=== PATIENT | male | born 1965 | race Caucasian/White ===

== ENCOUNTER → 2018-04-04 09:34 | Outpatient (BNVA) | payer OTHER, SELFPAY | PROVIDERS: PCP Emergency Medicine; Referring Provider Emergency Medicine; Visit Provider Surgery | DX: K60.3 Anal fistula (principal) | CPT/HCPCS: 99202; 99213 ==

== ENCOUNTER 2019-04-12 07:00 | Outpatient (CLI) | payer OTHER, SELFPAY ==
[2019-04-12 12:06] LABS: Anion Gap 7.9 mmol/L (3-11); BUN 22 mg/dL (7-18); CO2 34.1 mmol/L (21.0-32.0); CREATININE 0.96 mg/dL (0.70-1.30); Calcium 8.7 mg/dL (8.5-10.1); Calculated LDL 77 mg/dL; Chloride 103 mmol/L (98-107); Cholesterol 152 mg/dL (<200); Glucose 124 mg/dL (74-106); HDL Cholesterol 34 mg/dL (40-60); Potassium 3.7 mmol/L (3.5-5.1); Sodium 145 mmol/L (136-145); Triglyceride 207 mg/dL (<150)
[2019-04-12 12:55] LABS: COMMENT (LAB VIEW ONLY) 231.84 mg/dL; Microalb ug/mg Crea 145.9 ug/mg Cr
== END 2019-04-12 07:20 ==
PROVIDERS: PCP Emergency Medicine; Visit Provider Emergency Medicine
DX: E11.9 Type 2 diabetes mellitus without complications (principal); I10 Essential (primary) hypertension; Z98.890 Other specified postprocedural states
CPT/HCPCS: 36415; 80048; 80061; 82043; 82570; 83036

== ENCOUNTER 2020-01-04 04:29 | Emergency (ER) | payer OTHER, SELFPAY ==
[2020-01-04 04:32] VITALS: PULSE 74; RESP 24; TEMP 35.8; O2SAT 100
--- NOTE | 2020-01-04 04:35 | W.ED.GENAD ---
Discharge Plan Disposition Patient Disposition: HOME Condition: Stable Discharge Details Clinical Impression: Kidney stones Primary Care Provider: Robert Arellano ED Provider: Darius Frank Home Meds and New Rx's Prescriptions: New ondansetron 4 mg tablet,disintegrating 4 mg PO Q8H PRN (Reason: nausea and vomiting) Qty: 30 RF: 0 tamsulosin 0.4 mg capsule 0.4 mg PO DAILY Qty: 14 RF: 0 oxycodone 5 mg tablet 5 mg PO Q6H PRN (Reason: pain) Qty: 12 RF: 0 Continued NARCOTIC CONTRACT RF: 0 hydrochlorothiazide 25 mg tablet 25 mg PO DAILY Qty: 90 RF: 4 ibuprofen 800 mg tablet 800 mg PO BID PRN (Reason: pain) Qty: 60 RF: 6 albuterol sulfate 90 mcg/actuation HFA aerosol inhaler 2 puff IH QID PRN (Reason: shortness of breath or wheezing) Qty: 18 RF: 8 hydrocodone-acetaminophen 10-325 mg tablet 1 tab PO BID MDD 2 tabs PRN (Reason: pain) Qty: 60 RF: 0 multivitamin Tablet 1 tab PO DAILY RF: 0 ascorbic acid (vitamin C) [Vitamin C] 500 mg Tablet 1,000 mg PO DAILY RF: 0 Discharge Instructions Instructions: Kidney Stones (ED) Additional Instructions: follow up with urology, you should be contacted with an appointment if you develop fevers or persistent vomit return to the emergency department you can take 600mg ibuprofen every 6 hours or 800mg every 8 hours while taking the oxycodone do not take the hydrocodone Medical Decision Making 54 yo male who states he has htn and prior kidney stones in the past states he went to bed feeling well but awoke a few hours ago with severe left sided lower back and flank pain similar to prior kidney stones. He denies fevers, chills, chest pain, vomit. Does smoke, drinks occasional, denies drug use. HE arrives in pain, no abdominal tenderness, normal vascular exam. Suspect given acute onset of symptoms he has recurrent kidney stone, will tx with toradol, dilaudid and zofran, and obtain ct to evaluate for kidney stone blood work shows no acute findings, ct confirms left uvj calculus with mild hydro, measured at 2mm. No fevers, and no dysuria so doubt uti and ua not consistent with uti. His pain improved and he is hd stable for d/c. Will have him f/u with urology and return precautions given. he is on hydrocodone so will have him stop this and use oxycodone for a few days until stone hopefully passes Differential Diagnosis Differential Diagnosis: kidney stone, pancreatitis, uti Medical Records Medical records reviewed: Yes I reviewed the patient's medical records. Imaging Data Radiologic Study: Attestation: I personally reviewed and interpreted this imaging study as follows: Imaging: CT Scan Radiologist's impression: IMPRESSION: 2 mm left UVJ calculus with mild left hydroureteronephrosis. Renal calculi as described greater on the right Lab Data Lab results reviewed: Yes I reviewed the patient's lab results. HPI General Mode of arrival: ambulatory. Date/Time Provider Initiated Documentation: 01/04/20 04:29. Limitations to Documentation: no limitations. Information obtained by: patient. History of Present Illness 54 year old M presents to the emergency department with the chief complaint of left flank pain, described as moderate, Patient started experiencing this hour(s) (3) and it has been constant. No relieving factors improve symptom(s), No exacerbating factors reported . Patient did receive the following treatments prior to arrival, none Related Data Home Medications Medication Instructions Recorded Confirmed Narcotic Contract 01/04/13 04/12/19 hydrochlorothiazide 25 mg tablet 25 mg PO DAILY #90 tab 03/14/19 01/04/20 ibuprofen 800 mg tablet 800 mg PO BID PRN #60 tab-cap 08/14/19 01/04/20 albuterol sulfate 90 mcg/actuation 2 puff IH QID PRN #18 gm 08/16/19 01/04/20 aerosol inhaler hydrocodone 10 mg-acetaminophen 1 tab PO BID PRN #60 tab MDD 2 tabs 12/19/19 01/04/20 325 mg tablet ascorbic acid (vitamin C) [Vitamin 1,000 mg PO DAILY 01/04/20 01/04/20 C] multivitamin 1 tab PO DAILY 01/04/20 01/04/20 ondansetron 4 mg PO Q8H PRN #30 tab 01/04/20 oxycodone 5 mg PO Q6H PRN #12 tab 01/04/20 tamsulosin 0.4 mg PO DAILY #14 cap 01/04/20 Previous Rx's Medication Instructions Recorded hydrochlorothiazide 25 mg tablet 25 mg PO DAILY #90 tab 03/14/19 ibuprofen 800 mg tablet 800 mg PO BID PRN #60 tab-cap 08/14/19 albuterol sulfate 90 mcg/actuation 2 puff IH QID PRN #18 gm 08/16/19 aerosol inhaler hydrocodone 10 mg-acetaminophen 1 tab PO BID PRN #60 tab MDD 2 tabs 12/19/19 325 mg tablet ondansetron 4 mg PO Q8H PRN #30 tab 01/04/20 oxycodone 5 mg PO Q6H PRN #12 tab 01/04/20 tamsulosin 0.4 mg PO DAILY #14 cap 01/04/20 Allergies Allergy/AdvReac Type Severity Reaction Status Date / Time No Known Allergies Allergy Verified 01/04/20 04:39 Review of Systems All systems reviewed & are unremarkable except as noted in HPI and below Constitutional Constitutional: Denies chills and Denies fever(s) Cardiovascular Cardiovascular: Denies chest pain Respiratory Respiratory: Reports cough Gastrointestinal Gastrointestinal: Denies abdominal pain Genitourinary Genitourinary: Denies dysuria Integumentary/Breasts Skin/Breast: Denies rash [facility] Surgical History (Updated 08/19/18 @ 07:48 by Chris Peña) KNEE SURGERY LEFT Family History Mother No problems noted. Father Heart disease Stroke Sister No problems noted. Brother No problems noted. Grandfather Personal history of malignant neoplasm Grandfather No problems noted. Grandmother Heart disease Grandmother Personal history of malignant neoplasm Social History Smoking/Tobacco Use Status: Current every day Tobacco Type: cigarettes Alcohol Intake: current Alcohol Intake frequency: a few times a month Drug use: Never Substance use type: does not use Do you feel safe at home: Yes Do you feel safe in your relationship?: Yes Exam Const General: other (in pain) Orientation: alert HENMS Head: normal to inspection Ears: external ears normal General nose exam: external nose normal Mouth: moist mucous membranes Eyes General: appearance normal, both eyes and all related structures Neck Neck: normal visual inspection Resp Effort & Inspection: normal respiratory effort and able to speak in complete sentences Cardio Rate: regular rate GI Palpation: soft and nontender Back/Spine/Pelvis Back: no CVA tenderness Skin General skin exam: no rashes or lesions noted Neuro General: patient alert and patient oriented x3 Extrem General: normal to inspection Psych Mental Status: mental status grossly normal
[2020-01-04] MEDS: Ondansetron 4 MG/2 ML VIAL IVP (04:49)
[2020-01-04] MEDS: Ketorolac 15 MG/ML VIAL IVP (04:49)
[2020-01-04] MEDS: Normal Saline 1,000 ML 1000 ML IV (04:50)
[2020-01-04 05:00] LABS: Abs Immature Grans 0.04 10^3/uL (0.0-0.06); Absolute Basophil Count 0.04 10^3/uL (0.0-0.2); Absolute Eosinophil Count 0.17 10^3/uL (0.0-0.7); Absolute Lymphocyte Count 2.22 10^3/uL (1.2-3.4); Absolute Monocyte Count 0.65 10^3/uL (0.1-0.8); Basophils % 0.4; Eosinophils % 1.8; HCT 47.2 % (40.0-50.0); HGB 16.1 g/dL (13.5-17.5); Immature Grans % 0.4; Lymphocytes % 23.6; MCH 32.5 pg (27.0-33.0); MCHC 34.1 % (32.0-36.0); MCV 95.2 fL (80-95); MPV 9.1 fL (8.0-11.0); Monocytes % 6.9; Neutrophils % 66.9; Nucleated RBC 0 %; Platelet Count 217 10^3/uL (130-400); RBC 4.96 10^6/uL (4.36-5.78); RDW 12.9 % (11.8-14.1); RDW-SD 45.4 fL; WBC 9.42 10^3/uL (4.4-10.8)
[2020-01-04] MEDS: HYDROmorphone 2 MG/ML VIAL 1 MG IVP ×2 (05:03→05:40)
[2020-01-04 05:14] LABS: Bilirubin, Direct 0.07 mg/dL (0.00-0.20); Bilirubin, Total 0.4 mg/dL (0.2-1.0); Lipase 138 U/L (73-393); Magnesium 1.9 mg/dL (1.8-2.4); PTT Activated 27.6 sec (21.0-31.4); Prothrombin Time 10.1 sec (9.3-11.0)
[2020-01-04 05:15] LABS: ALT 36 U/L (16-63); AST 19 U/L (15-37); Albumin 3.8 g/dL (3.4-5.0); Alkaline Phosphatase 81 U/L (46-116); Anion Gap 11.5 mmol/L (3-11); BUN 22 mg/dL (7-18); Bilirubin, Total 0.3 mg/dL (0.2-1.0); CO2 27.5 mmol/L (21.0-32.0); CREATININE 1.05 mg/dL (0.70-1.30); Chloride 102 mmol/L (98-107); Glucose 162 mg/dL (74-106); Potassium 3.5 mmol/L (3.5-5.1); Sodium 141 mmol/L (136-145); Total Protein 7.7 g/dL (6.4-8.2)
--- NOTE | 2020-01-04 05:25 | DI.CT_ITS ---
EXAM: CT RENAL COLIC WO CLINICAL HISTORY: right flank pain. TECHNIQUE: Imaging Protocol: Axial computed tomography images with coronal and sagittal reformatted images were created and reviewed. COMPARISON: CT RENAL COLIC WO CONTRAST from 08/16/2013 FINDINGS: ABDOMEN: Lung Bases: Normal where visualized. Liver: Normal density. No measurable mass. Gallbladder and biliary tract: No radiodense calculus or biliary ductal dilation. Pancreas: Normal density, no abnormal calcifications or inflammatory process. Spleen: Normal. Kidneys: Normal size, contour and axis.5 mm nonobstructing stone in the midpole of the right kidney. 1-2 mm nonobstructing stone in the lower pole of the left kidney. 2 mm stone at the left ureteral v esicular junction causing mild hydronephrosis. No masses seen. Adrenal glands: Stable mild adrenal nodularity. Lymph nodes: Within normal limits. Abdominal Aorta: Abdominal portion non-dilated. Atherosclerosis. PELVIS: Bladder:Symmetric distention, no gross wall thickening. Bowel: No obstruction or bowel wall thickening. Appendix is unremarkable. Peritoneal cavity: No ascites, collection or mesenteric inflammatory response Reproductive organs: Within normal limits. Bones: Mild degenerative changes. Soft Tissues: Small paraumbilical hernia. IMPRESSION: 1. 2 mm left UVJ stone causing mild left hydroureteronephrosis. 2. Bilateral nephrolithiasis. RADIATION DOSE DELIVERED: 1,533.49mGy.cm Total DLP DATA REPOSITORY: All CT scans at this facility are submitted to the National Radiology Data Registry (NRDR) Dose Index Registry (DIR) with the [employer] ([employer]). RADIATION OPTIMIZATION: All CT scans at this facility use at least one of these dose optimization te chniques: automated exposure control; mA and/or kV adjustment per patient size (includes targeted exa ms where dose is matched to clinical indication); or iterative reconstruction.
[2020-01-04 05:26] VITALS: BP 150/82; PULSE 90; RESP 20; TEMP 36.5; O2SAT 100
[2020-01-04 05:39] LABS: Bilirubin Negative (Negative); Blood Large (Negative); Clarity Clear (Clear); Glucose Negative (Negative); Ketones Negative (Negative); Leukocyte Esterase Negative (Negative); Nitrite Negative (Negative); Specific Gravity >= 1.030 (1.005-1.025); Urobilinogen 0.2 EU/dL (Up TO 0.2)
[2020-01-04 05:42] LABS: Bacteria Rare HPF (Negative); C & S Indicated? C&S Done As Ordered; Casts Negative LPF (Negative); Crystals Negative HPF (Negative); Epithelial Cells Rare HPF (Negative); Mucus Negative (Negative); RBC 20-50 HPF (0-2); WBC Negative HPF (0-5)
--- NOTE | 2020-01-04 05:58 | NUR.NOTE ---
Refferal to Urology faxed to Care management. Supriya ED Nursing Note:
[2020-01-04 06:02] VITALS: BP 150/82; PULSE 90; RESP 20; TEMP 36.5; O2SAT 100
--- NOTE | 2020-01-04 16:04 | DI.VRAD_ITS ---
PROCEDURE INFORMATION: Exam: CT Abdomen And Pelvis Without Contrast Exam date and time: 01/04/2020 4:35 AM Age: 54 years old Clinical indication: Abdominal pain; Prior surgery; Surgery type: Hernia repair; Patient HX: Left flank pain x5 hours per PT TECHNIQUE: Imaging protocol: Computed tomography of the abdomen and pelvis without contrast. Radiation optimization: All CT scans at this facility use at least one of these dose optimization techniques: automated exposure control; mA and/or kV adjustment per patient size (includes targeted exams where dose is matched to clinical indication); or iterative reconstruction. COMPARISON: CT RENAL COLIC WO CONTRAST 08/16/2013 10:30 AM FINDINGS: Liver: Normal. No mass. Gallbladder and bile ducts: Normal. No calcified stones. No ductal dilation. Pancreas: Normal. No ductal dilation. Spleen: Normal. No splenomegaly. Adrenals: Normal. No mass. Kidneys and ureters: 2 mm left UVJ calculus with mild left hydroureteronephrosis. Right renal calculus measuring 6 mm noted. Additional punctate left renal calculus in the lower pole Stomach and bowel: Unremarkable. No obstruction. No mucosal thickening. Appendix: No evidence of appendicitis. Intraperitoneal space: Unremarkable. No free air. No significant fluid collection. Vasculature: Unremarkable. No abdominal aortic aneurysm. Lymph nodes: Unremarkable. No enlarged lymph nodes. Urinary bladder: Unremarkable as visualized. Reproductive: Unremarkable as visualized. Bones/joints: Unremarkable. No acute fracture. Soft tissues: Unremarkable. IMPRESSION: 2 mm left UVJ calculus with mild left hydroureteronephrosis. Renal calculi as described greater on the right Dictated and Authenticated by: Yo Soto MD. Ordering:TIM Mccoy MD
--- NOTE | 2020-01-06 12:26 | W.ED.FU ---
Received urine culture results showing 50-100,000 mixed gram-positive bacteria. I reviewed medical record and patient did not have dysuria or fever noted on presentation. There were few epithelial cells noted in urinalysis. I called and spoke with the patient and discussed urine culture results. He does note that he has some dysuria. No fevers or chills. Pain persists but is better. Plan will be to initiate antibiotic coverage with Keflex 500 4 times daily x1 week. I encouraged the patient to follow-up with his primary care physician and return should have any worsening or new concerning symptoms. Patient verbalized understanding of treatment plan modification and will parts picker this prescription today.
== END 2020-01-04 06:10 | disposition home or self-care (01) ==
PROVIDERS: Emergency Provider Emergency Medicine; PCP Emergency Medicine
DX: N13.6 Pyonephrosis (principal); Z87.442 Personal history of urinary calculi; I10 Essential (primary) hypertension
CPT/HCPCS: 36415; 80053; 83690; 96361; 96374; 96375; 96376; 99284; 74176; 81003; 81015; 82247; 82248; 83735; 85025; 85610; 85730; 87086; J1885; J2405

== ENCOUNTER 2020-12-17 11:20 | Outpatient (CLI) | payer MEDICARE, SELFPAY ==
[2020-12-17 13:15] LABS: Anion Gap 8.2 mmol/L (3-11); BUN 19 mg/dL (7-18); CO2 29.8 mmol/L (21.0-32.0); Calcium 8.9 mg/dL (8.5-10.1); Chloride 101 mmol/L (98-107); Glucose 125 mg/dL (74-106); Potassium 4.2 mmol/L (3.5-5.1); Sodium 139 mmol/L (136-145)
[2020-12-17 13:23] LABS: Hemoglobin A1C 6.7 % (<5.7)
== END 2020-12-17 11:21 | disposition home or self-care (01) ==
LOC: LOS 11:21
PROVIDERS: PCP Emergency Medicine; Visit Provider Emergency Medicine
DX: I10 Essential (primary) hypertension (principal); E11.9 Type 2 diabetes mellitus without complications
CPT/HCPCS: 36415; 80048; 83036

== ENCOUNTER 2022-06-15 02:35 | Outpatient (CLI) | payer BC, SELFPAY ==
[2022-06-15 08:14] LABS: ALT 40 U/L (16-63); AST 19 U/L (15-37); Albumin 3.6 g/dL (3.4-5.0); Alkaline Phosphatase 95 U/L (46-116); BUN 25 mg/dL (7-18); Bilirubin, Total 0.3 mg/dL (0.2-1.0); Calcium 9.1 mg/dL (8.5-10.1); Calculated LDL 69 mg/dL (<100); Chloride 98 mmol/L (98-107); Cholesterol 172 mg/dL (<200); Estimated GFR 87.78 (mL/min/1.73m2); Glucose 242 mg/dL (74-106); HDL Cholesterol 41 mg/dL (40-60); Potassium 3.3 mmol/L (3.5-5.1); Sodium 137 mmol/L (136-145); Total Protein 7.6 g/dL (6.4-8.2); Triglyceride 311 mg/dL (<150)
[2022-06-15 08:17] LABS: Microalb ug/mg Crea 200.4 ug/mg Cr
[2022-06-15 08:24] LABS: Hemoglobin A1C 8.1 % (<5.7)
== END 2022-06-15 02:36 | disposition home or self-care (01) ==
PROVIDERS: PCP Nurse Practitioner Family; Visit Provider Nurse Practitioner Family
DX: E11.9 Type 2 diabetes mellitus without complications (principal); I10 Essential (primary) hypertension
CPT/HCPCS: 36415; 80053; 80061; 82043; 82570; 83036

== ENCOUNTER 2022-08-07 02:17 | Outpatient (CLI) | payer BC, SELFPAY ==
[2022-08-07 12:28] LABS: Anion Gap 10.7 mmol/L (3-11); BUN 18 mg/dL (7-18); CO2 28.3 mmol/L (21.0-32.0); CREATININE 0.8 mg/dL (0.70-1.30); Calcium 9.3 mg/dL (8.5-10.1); Chloride 101 mmol/L (98-107); Estimated GFR 103.22 (mL/min/1.73m2); Glucose 160 mg/dL (74-106); Potassium 3.9 mmol/L (3.5-5.1); Sodium 140 mmol/L (136-145)
== END 2022-08-07 02:18 | disposition home or self-care (01) ==
LOC: LOS 02:17
PROVIDERS: PCP Nurse Practitioner Family; Visit Provider Nurse Practitioner Family
DX: E11.9 Type 2 diabetes mellitus without complications (principal)
CPT/HCPCS: 36415; 80048

== ENCOUNTER 2023-11-09 17:15 | Outpatient (REF) | payer BC, SELFPAY ==
--- OUTSIDE RECORDS SUMMARY | 2023-11-09 17:18 | XMS_ITS | Encounter Summary ---
Author Organization [facility] Address [address] [place] [address] Care Team Providers Care Cocoa Roaster Name Role Phone Unavailable Primary Care Provider Unavailabl e Encounter Details Date Type Department Care Team (Latest Contact Info) Description 04/19/2015 9:04 EST - 04/19/2015 23:59 EST Hospital Encounter [address] [address] Unknown, Provider, Discharge Disposition: Home or Self Care Social History Tobacco Use Types Packs/Day Years Used Date Smoking Tobacco: Never Assessed Sex and Gender Information Value Date Recorded Sex Assigned at Not on file Gender Identity Not on file Sexual Orientation Not on file documented as of this encounter Discharge Disposition Disposition Code Departure Means Destination Home or Self Jail documented in this encounter Plan of Treatment Not on file documented as of this encounter Visit Diagnoses Not on filedocumented in this encounter
--- OUTSIDE RECORDS SUMMARY | 2023-11-09 17:18 | XMS_ITS | Encounter Summary ---
Author Organization [facility] Address [facility] [place] [address] Care Team Providers Care Manager Clinical Research Name Role Phone AdanRobert le Primary Care Provider [phone] Reason for Visit * Auth/Cert Specialty Diagnoses / Procedures Referred By Jorge Luis t Referred To Contact Diagnoses Anal fistula ANAL FISTULA Procedures PRO SURG DIAGNOSTIC EXAM, ANORECTAL PRO PLACEMENT, SETON PRO REMOVAL ANAL FISTULA, COMPLEX/MULTI ANORECTAL EXAM, REQUIRING ANESTHESIA, DIAGNOSTIC (WRVU 1.8) ANAL SETON PLACEMENT (WRVU 3) SURGICAL TREATMENT OF ANAL FISTULA COMPLEX OR MULTIPLE W\WO SETON PLACEMENT (WRVU 6.39) Referral ID Status Reason Start Date Expiration Date Visits Re quested Visits Authorized [id number] 1 1 Encounter Details Date Type Department Care Team (Late st Contact Info) Description 04/14/2018 4:28 PM EST Anesthesia Event [place] [address] Terence Montiel MD [facility] [place] [address] Ara Calvillo MD [facility] [address] Anesthesia Record Procedure Summary Procedure Name Responsible Anesthesiologist Anesthesia Start Time Anesthesia Stop Time ANORECTAL EXAM, REQUIRING ANESTHESIA, DIAGNOSTIC (WRVU 1.8) (Anus) Terence Montiel MD 04/14/18 1628 04/14/18 1737 Events Date Time Event Comment 04/14/2018 1628 Start 1633 AN Verify 1634 An Start Data 1639 An Induction 1640 An Intubation 1644 Anesthesia Ready 1657 Procedure Start 1712 1728 Extubation/LMA Out 1728 an stop data 1737 Recovery or ICU Handoff Elysia ent care was transferred to the destination unit staff after review of the patient's medical history, current anesthetic/surgical status and plan, according to the Provider Handoff Checklist. 1737 Stop Meds Name Total Midazolam 2 mg fentaNYL 100 mcg Propofol 250 mg Rocuronium 30 mg Ondansetron 4 mg Dexamethasone 12 mg Neostigmine 5 mg Glycopyrrolate 0.8 mg Dexmedetomidine 8 mcg Dexmedetomidine INF 23.43 mcg Albuterol Inhaler 6 puff lactated Ringers infusion 1,000 mL 1,000 mL * Agents Name O2 Air N2O Sevoflurane (et) * Blood No blood administrations on file. Lines, Drains, and Airways Type Details Placement Removal (RETIRED) Peripheral IV Line - Single Lumen 04/14/18; 1513; median cubital vein (antecubital fossa), left; [id number] catheter system; 20 gauge; distraction, intradermal injection, tolerated well, appears comfortable; 04/14/18; 1909 04/14/18 1513 by Amina Alcantara RN 04/14/18 190 by Libra Duran, RN ETT Mask Ventilation: No t Attempted (0); ETT Type: Cuffed; ETT Size: 8.5 mm; Indirect: Video; Notes: Asleep, Pre-O2, RSI, Stylette; Attempts: 1; Laryngoscopy Grade: 1; ETT Placement Verified By: Auscultation, Capnometry, Visual; Secured at Teeth: 22 cm; Inserted by: James HALL; Removal Date: 04/14/18; Removal Time: 172704/14/18 1645 by Jennifer Maza CRNA 04/14/18 1728 by Haven Conley CRNA Incision 04/14/18; 1705; perirectal; 11/17/21 (LDA cleanup utility RA#[id number]); 1715 (LDA cleanup utility RA#[id number]) 04/14/18 1705 by Stacie Naylor RN 11/17/21 171 by Ayush Mcintyre documented in this encounter Social History Tobacco Use Types Packs/Day Years Used Date Smoking Tobacco: Every Day Smokeless Tobacco: Never Sex and Gender Information Value Date Recorded Sex Assigned at Not on file Gender Identity Not on file Sexual Orientation Not on file documented as of this encounter OR Notes * Anesthesia Postprocedure Evaluation - Terence Montiel MD - 04/14/2018 6:58 PM EST [facility] Department of Anesthesiology Post-procedure Note Patient: Rubens Florian Procedure Summary Date: 04/14/18 Room / Location: [address] MAIN OR Anesthesia Start: 1628 Anesthesia Stop: 1736 Procedures: ANORECTAL EXAM, REQUIRING ANESTHESIA, DIAGNOSTIC (WRVU 1.8) (N/A Anus) INCISION & DRAINAGE, PERIANAL ABSCESS, SUPERFICIAL (WRVU 1.24) (N/A Anus) Diagnosis: (ANAL FISTULA) Surgeon: Freya Bruno MD Responsible Provider: Terence Montiel MD Anesthesia Type: general ASA Status: 3 All Anesthesia Providers: Anesthesiologist: Ara Calvillo MD; Terence Montiel MD BUSINESS SPECIALIST: Haven Conley CRNA; Jennifer Maza CRNA Vitals Value Taken Time BP 117/35 04/14/2018 6:30 PM Temp 36.2 ??C (97.2 ??F) 04/14/2018 5:35 PM Pulse Resp 16 04/14/2018 6:15 PM SpO2 96 % 04/14/2018 6:33 PM Pain Level 6 04/14/2018 6:15 PM Vitals shown include unvalidated device data. Patient Location: PACU/[facility] Level of Consciousness: Awake and Alert Pain Management: Satisfactory Analgesia PONV: None Cardiovascular Status: At Baseline Respiratory Status: At Baseline Postoperative Fluid Status: Intravascular EUvolemia Possible Anesthetic Complications: NONE apparent at time of evaluation Final Primary Anesthesia Type: General (The anesthetic type performed was the same as planned.) Comments: I have evaluated the patient in the postoperative period. The patient has no major complaints and there are no serious complications evident. * Anesthesia Preprocedure Evaluation - Ara Calvillo MD - 04/14/2018 3:23 PM EST Pre-Anesthesia Evaluation for: Rubens Florian a 52 y.o. male. Procedure(s): ANORECTAL EXAM, REQUIRING ANESTHESIA, DIAGNOSTIC (WRVU 1.8) ANAL SETON PLACEMENT (WRVU 3) SURGICAL TREATMENT OF ANAL FISTULA COMPLEX OR MULTIPLE W\WO SETON PLACEMENT (WRVU 6.39) No Known Allergies Medications: MAR and/or home medications have been reviewed. Physical Exam: Most Recent Vitals: 04/14/18 1450 BP: 159/88 Pulse: Resp: Temp: SpO2: Body mass index is 44.48 kg/m??. Height: 177.8 cm (5' 10) Weight: (!) 140.6 kg (310 lb) Airway Assessment: Mallampati: III TM distance: <3 FB Neck ROM: full Cardiovascular Assessment: Rhythm: regular Rate: normal Pulmonary Assessment: (+) wheezes Dental Assessment: - normal exam Misc Assessment: Patient is wearing No contact(s). IV access: Peripheral line Anesthesia Plan: ASA 3 general, with a(n) intravenous induction Region - Other Informed Consent: Anesthetic plan and risks discussed with patient and spouse. Use of blood products discussed with patient and spouse who consented to blood products. Plan discussed with BUSINESS SPECIALIST. PAT Staff Note Attending Note: Rubens Florian is a 52 y.o. male who presents for the above procedure in the setting of anal drainage. Past medical history was reviewed and is significant for - HTN, nl 130s/70s - Tobacco, 1ppd - Chronic wrist pain, on 10 norco bid - JAG, on CPAP, 16cm H20 - Obesity Anesthestic PMH: Denies issues NPO: Appropriate-- ROS positive for: nil METS: > 4 Cardiac: No CP or SOB with exertion Labs: No results for input(s): ABORH in the last 7068 hours. Anesthestic Plan: Plan GETA, standard ASA monitors, PIV after discussion of benefits, indications, and risks (including but not limited to sore throat, dental injury, prolonged intubation, cardiac or neurologic event). Ara Calvillo MD documented in this encounter Plan of Treatment Not on file documented as of this encounter Visit Diagnoses Not on filedocumented in this encounter Administered Medications Inactive Administered Medications - up to 3 most recent administrations Medication Order MAR Action Action Date Dose Rate Site albuterol 90 mcg/actuation inhaler PRN, Starting on Denise 04/14/18 at 1724, Until Denise 04/14/18 at 1738, Anesthesia Intra-op, Routine Given 04/14/2018 5:24 PM EST 6 puffs dexamethasone (DECADRON) injection PRN, Starting on Denise 04/14/18 at 1659, Until Denise 04/14/18 at 1737, Anesthesia Intra-op, Routine Given 04/14/2018 4:59 PM EST 12 mg dexmedetomidine (PRECEDEX) 4 mcg/mL (standard Adult & Pedi greater than 20kg) infusion (premix) CONTINUOUS PRN, Starting on Denise 04/14/18 at 1712, Until Denise 04/14/18 at 1737, Anesthesia Intra-op New Bag 04/14/2018 5:12 PM EST 0.4 mcg/kg/hr 14.1 mL/hr dexmedetomidine (PRECEDEX) injection PRN, Starting on Denise 04/14/18 at 1658, Until Denise 04/14/18 at 1737, Anesthesia Intra-op, Routine Given 04/14/2018 5:03 PM EST 4 mcg Given 04/14/2018 4:58 PM EST 4 mcg fentaNYL 50 mcg/mL multi-dose injection PRN, Starting on Denise 04/14/18 at 1632, Until Denise 04/14/18 at 1737, Anesthesia Intra-op, Routine Given 04/14/2018 4:37 PM EST 50 mcg Given 04/14/2018 4:32 PM EST 50 mcg glycopyrrolate (ROBINUL) multi-dose injection PRN, Starting on Denise 04/14/18 at 1724, Until Denise 04/14/18 at 1737, Anesthesia Intra-op, Routine Given 04/14/2018 5:24 PM EST 0.8 mg midazolam (PF) (VERSED) multi-dose injection PRN, Starting on Denise 04/14/18 at 1628, Until Denise 04/14/18 at 1737, Anesthesia Intra-op, Routine Given 04/14/2018 4:28 PM EST 2 mg neostigmine (BLOXIVERZ) injection PRN, Starting on Denise 04/14/18 at 1724, Until Denise 04/14/18 at 1737, Anesthesia Intra-op, Routine Given 04/14/2018 5:24 PM EST 5 mg ondansetron (ZOFRAN) injection PRN, Starting on Denise 04/14/18 at 1659, Until Denise 04/14/18 at 1737, Anesthesia Intra-op, Routine Given 04/14/2018 4:59 PM EST 4 mg propofol (DIPRIVAN) 10 mg/mL bolus injection (Anesthesia) PRN, Starting on Denise 04/14/18 at 1639, Until Denise 04/14/18 at 1737, Anesthesia Intra-op Given 04/14/2018 4:39 PM EST 250 mg rocuronium (ZEMURON) multi-dose injection PRN, Starting on Denise 04/14/18 at 1646, Until Denise 04/14/18 at 1737, Anesthesia Intra-op, Routine Given 04/14/2018 4:46 PM EST 30 mg documented in this encounter Care Teams Manager Clinical Research Relationship Specialty Start Date End Date Robert Arellano DO [address] [place] [address] PCP - General Family Medicine 04/05/18 documented as of this encounter
--- OUTSIDE RECORDS SUMMARY | 2023-11-09 17:18 | XMS_ITS | Encounter Summary ---
Author Organization [facility] [place] [address] Care Team Providers Care Trail Construction Worker Name Role Phone Robert Arellano DO Primary Care Provider [phone] Reason for Visit * Reason Comments Establish Care Anal Fistula * Consultation (Routine) - Closed Specialty Diagnoses / Procedures Referred By Jorge Luis cano Referred To Contact General Surgery Diagnoses ANAL FISTULA Deyvi Allen, DO [address] [place] [address] [facility] [address] [place] [address] Referral ID Status Reason Start Date Expiration Date V isits Requested Visits Authorized [id number] Closed Consult, Test & [facility] 04/05/2018 04/05/2019 1 1 Encounter Details Date Type Department Care Team (Late st Contact Info) Description 04/12/2018 2:30 PM EST Office [place] [address] Lizzie Lozoya APRN [facility] [place] [address] Perianal abscess Social History Tobacco Use Types Packs/Day Years Used Date Smoking Tobacco: Every Day Smokeless Tobacco: Never Sex and Gender Information Value Date Recorded Sex Assigned at Not on file Gender Identity Not on file Sexual Orientation Not on file documented as of this encounter Last Filed Vital Signs Vital Sign Reading Time Taken Comments Blood Pressure 140/77 04/12/2018 2:57 PM EST Pulse 86 04/12/2018 2:57 PM EST Temperature 36.9 ??C (98.5 ??F) 04/12/2018 2:57 PM ES T Respiratory Rate 14 04/12/2018 2:57 PM EST Oxygen Saturation 98% 04/12/2018 2:57 PM EST Inhaled Oxygen Concentration - - Weight 140.6 kg (309 lb 14.4 oz) 04/12/2018 2:57 PM EST Height 175.3 cm (5' 9) 04/12/2018 2:57 PM EST Body Mass Index 45.76 04/12/2018 2:57 PM EST documented in this encounter Progress Notes * Lizzie Lozoya, PAINTING WORKER - 04/12/2018 2:30 PM EST Colon and Rectal Surgery Outpatient Consultation Note [place] [phone] FAX: Reason for Visit: Suspicion for fistula. HPI Patient presents for small area to right butt cheek that has been intermittently draining for about4 months. He states that he first noticed a hot, swollen are to right buttock about 4 months ago, it was tender, but not perticularly painful, he has not noticed a burst of drainage, just a continuedsmall amount of yellow/thick to bloody drainage, especially if he squeezes the area it will drain and the lump will become smaller, but never completely goes away. A few weeks ago he states the drainage stopped, but then about a week later it started draining again. He was seen in [facility] and was recommended to proceed to colon and rectal surgeon for suspicion of anal fistula. He states he did have something similar years ago in a different location, which was drained and had some typeof drain left and it healed up, he believes in or 1999. The patient has a bowel movement at least once per day, with a typical vaying in size and soft formed consistency. Regarding continence, the patient denies incontinence to gas, denies incontinence toliquid stool, denies incontinence to solid stool. The patient has had a colonoscopy on 04/19/2015 with the results being 2 sigmoid polyps with pathology showing hyperplastic. In terms of diet he states that for the last year he has been improving his diet and has lost 50 pounds. He will usually have a omlet with cheese and meat for dinner, banana/salad for lunch, protein veggie for dinner. He drinks about a pot of coffee throughout the day. He drinks 2-3 glasses of water and rare alcohol use. He does not take a fiber supplement. He does take Caro (10-325) usually 2 tablets daily for chronic right wrist pain, HTN on lisinopriland uses a CPAP at night for sleep apnea. He is a pack per day smoker for 35 + years. Past Surgical History: Procedure Laterality Date ??? ABSCESS DRAINAGE PERINEUM Drainage of perineal cyst in or 1999 ??? ANKLE SURGERY Had plate screws, which where subsequently removed. ??? KNEE SURGERY Current Outpatient Medications: ??? pregabalin (LYRICA) 100 mg capsule, , Disp: , Rfl: Allergies no known allergies No family history on file. Social History Socioeconomic History ??? Marital status: Spouse name: Not on file ??? Number of children: Not on file ??? Years of education: Not on file ??? Highest education level: Not on file Social Needs ??? Financial resource strain: Not on file ??? Food insecurity - worry: Not on file ??? Food insecurity - inability: Not on file ??? Transportation needs - medical: Not on file ??? Transportation needs - non-medical: Not on file Occupational History ??? Not on file Tobacco Use ??? Smoking status: Not on file Substance and Sexual Activity ??? Alcohol use: Not on file ??? Drug use: Not on file ??? Sexual activity: Not on file Other Topics Concern ??? Not on file Social History Narrative ??? Not on file Patient denies a family history of: colorectal cancer, colorectal polyps, diverticular disease, Crohn disease and ulcerative colitis. Family History Problem Relation Age of Onset ??? No Known Problems Mother ??? No Known Problems Sister ??? No Known Problems Brother ??? Heart Disease Maternal Grandmother ??? Other Maternal Grandfather malignant neoplasm (unknown) ??? Other Paternal Grandmother neoplasm Constitutional: Denies unintentional weight loss, night sweats, fatigue, decreased appetite, or fever. Eyes: no visual changes, headaches, double vision, or pain. ENT: Denies sinus pain, bloody noses, or ear problems. Cardiovascular: Denies chest pain shortness of breath, leg swelling, palpitation, or loss of consciousness. Respiratory: Denies Cough, sputum, exercise intolerance. Gastrointestinal: Denies abdominal pain, swallowing problems, boating, cramping, nausea, vomiting, or constipation, or diarrhea Genitourinary: Denies urinary incontinence, burning, urgency, or frequency. Musculoskeletal: Chronic right wrist pain due to injury. Integumentary: No lesions, wounds, or skin irritation with the exception of small area to right butt cheek. He does intermittently have inflammation to groin folds. Neurologic: No changes in smell, hearing, taste, no numbness tingling, or balance problems. Psychiatric: no depression, anxiety, or body image concerns. Physical Exam: Blood pressure 140/77, pulse 86, temperature 36.9 ??C (98.5 ??F), temperature sourceOral, resp. rate 14, height 175.3 cm (5' 9), weight (!) 140.6 kg (309 lb 14.4 oz), SpO2 98 %. Bodymass index is 45.76 kg/m??. General Appearance: well developed and well nourished Neuro: awake, alert and oriented to person, place and time no acute distress Psych: appropriate mood and affect Eyes: extra ocular muscles intact, pupils equally reactive to light and accomodation ENT: neck supple, no lyphadenopathy noted CV: regular rate and rhythm Resp: non-labored without adventitous sounds on auscultation Lymph: no edema noted Abdomen: soft, non-tender, and not distended, no masses or organomegaly Perineal exam: The patient was examined in the prone position with assistance from nursing ([facility]) and Dr. Florinda Bruno. ??The external anus was inspected by gently spreading the buttocks. Noted to have small open area, about 5 cm from anal verge on right butt cheek. Not able to probe area, but appears to have palpable track towards anal canal. Rectum was examined with a well lubricated digit and revealed normal tone, squeeze, no tenderness, induration, irregularities, or nodules. Fecal color brown with normal consistency. ?? Anoscopy: ??After introducing a well lubricated lighted Large Hirschman anoscope, examination of the anal canal revealed normal appearing mucosa. No internal opening, lumps, bumps, or mucosal changes, no purulent drainage within the canal. COREFO: COREFO Responses 04/12/2018 Incontinence Scale 2.77 Social Impact Scale 8.33 Frequency Scale 12.5 Stool Releated Aspects 33.33 Medication Scale 0 Total COREFO Score 8.65 The COREFO questionnaire is a validated questionnaire with 27 questions to assess colorectal functional outcome. Patients are asked to consider the two week period prior before filling out the questionnaire. Category scores range from zero to 100. A total score is calculated from the categories above, also ranging from zero to 100. A higher score represents an increased level of functional disturbance. Labs: No labs available for review. Imaging: No imagine available for review. I have discussed with Rubens Florian, the nature of the disease process above. ?? We discussed the nature of anal fistula disease and that it typically is caused by an infection andanal abscess that drains through the perianal skin. We briefly discussed other causes of fistula including Crohn's disease, trauma, and malignancy, but I believe this fistula to be cryptoglandular inorigin or it could be a type of skin cyst or follicle abscess. I discussed with Rubens Florian that the treatment of cryptoglandular anal fistula is almost always surgical and that the risk of not treating a fistula is that there will be a recurrence of the abscess as the tract opening closes over. ?? We discussed the various configurations of anal fistula using the Elliott classification. Also, we discussed the goals of surgical treatment of anal fistula which include elimination of the fistula, prevent fistula recurrence, and preservation of continence. ?? We discussed various treatment options for anal fistula including fistulotomy, seton placement, endorectal advancement flap, fistula plug, and the LIFT (ligation of intersphincteric fistula tract) procedure. We also discussed the risks and benefits of each treatment in relation to the outlined goals. ?? Dr. Bruno recommended an exam under anaesthesia to better evaluate the area and determine if thereis indeed a fistula track or a chronic abscess cavity, which could be debrided and have a drain placed if needed. ?? Rubens Florian agrees to proceed with the plan as outlined and all questions were answered to stated satisfaction. Will plan to schedule EUA today and follow up with Dr. Florinda Bruno on day of surgery. Contact information provided should he have any questions or concerns prior to procedure. Lizzie Lozoya Advanced Practice Registered Nurse General Surgery: [facility] Pager: [phone] documented in this encounter Plan of Treatment Not on file documented as of this encounter Visit Diagnoses Diagnosis Perianal abscess Abscess of anal and rectal regions documented in this encounter Care Teams Trail Construction Worker Relationship Specialty Start Date End Date Robert Arellano DO [address] [place] [address] PCP - General Family Medicine 04/05/18 documented as of this encounter
--- OUTSIDE RECORDS SUMMARY | 2023-11-09 17:18 | XMS_ITS | Encounter Summary ---
Author Organization [facility] Address [facility] [place] [address] Care Team Providers Care Oil Separator Name Role Phone AdanRobert le Primary Care Provider [phone] Reason for Visit * Auth/Cert Specialty Diagnoses [...] Expiration Date Visits Re quested Visits Authorized [id number] 1 1 Encounter Details Date Type Department Care Team (Late st Contact Info) Description 04/14/2018 2:54 PM EST - 04/14/2018 4:17 PM EST [place] [address] Lidia Bruno MD [facility] [place] [address] ANORECTAL EXAM, REQUIRING ANESTHESIA, DIAGNOSTIC (WRVU 1.8) Social History Tobacco Use Types Packs/Day Years Used Date Smoking Tobacco: Every Day Smokeless Tobacco: Never Sex and Gender Information Value Date Recorded Sex Assigned at Not on file Gender Identity Not on file Sexual Orientation Not on file documented as of this encounter Last Filed Vital Signs Vital Sign Reading Time Taken Comments Blood Pressure 159/88 04/14/2018 2:50 PM EST Pulse 73 04/14/2018 2:49 PM EST Temperature 36.6 ??C (97.9 ??F) 04/14/2018 2:49 PM ES T Respiratory Rate 12 04/14/2018 2:49 PM EST Oxygen Saturation 98% 04/14/2018 2:49 PM EST Inhaled Oxygen Concentration - - Weight 140.6 kg (310 lb) 04/14/2018 2:49 PM EST Height 177.8 cm (5' 10) 04/14/2018 2:49 PM EST Body Mass Index 44.48 04/14/2018 2:49 PM EST documented in this encounter Discharge Instructions * Discharge Instructions* Anai Hopper RN - 04/14/2018 6:09 PM EST Next dose of acetaminophen (tylenol) can be taken at 12AM-2AM, 1000mg's given at 6PM POST ANESTHESIA INSTRUCTIONS Go home, rest, use caution on stairs. Change positions slowly. Do not smoke if you are alone. Diet light to regular as tolerated today. If nausea occurs start with clear liquids and progress slowly. No driving, operating machinery, alcoholic beverages and no important decisions for 24 hours. Monitor IV site for signs and symptoms of infection: increasing redness, swelling, foul drainage, if occurs contact M.D. Patients who have had endotrachial tubes (this tube, used by anesthesia department, is passed down your throat after you are asleep, to ensure safe air passage during your operation). A sore throat is normal due to the tube. Cold liquids or soothing lozenges will help ease the discomfort. The generalized muscle aches are due to the medication given to you just before the tube is inserted. As the medication wears off, you may develop muscle soreness, which usually goes away in 12-24 hours. * Patient Instructions* Scott Rosenberg - 04/14/2018 5:42 PM EST Images from the original note were not included. DIVISION OF COLON & RECTAL SURGERY Anorectal Surgery Patient Post-operative Discharge Instructions 1. Wound Care ?? Leave the dressing intact today and remove it tomorrow morning. If you need to move your bowels,the dressing may be removed sooner. ?? Expect some drainage - this may be residual pus, or may be a small amount of blood or mucus - this is normal / expected. ?? Please use fluffy 4x4 gauze to absorb any drainage and keep your bottom dry. ?? Please use a sitz bath or shower 3 - 4X per day (starting tomorrow morning). ?? Sitz bath instructions: Soak your buttocks in plain warm tapwater for 15 minutes 4X/day. This iscomforting and also increase blood flow to the area to aid in healing. ?? if you have a lot of swelling, try sitting on an ice-pack (frozen pea's work well). ?? You may sit on a pillow but do not sit on donut cushions as it spreads the buttocks. 2. Pain medications ?? Please take [id number] pain medications for post-operative discomfort. ?? Acetaminophen (Tylenol) 1000 mg by mouth every 6 hours. ?? Ibuprofen (Motrin/Advil) 600 mg by mouth every 6 hours with food & plenty of liquids. ?? You may alternate these medications every 3 hours; ex. Tylenol at 12pm, Ibuprofen at 3pm, Tylenol at 6pm, Ibuprofen at 9 pm. ?? In addition please use prescribed narcotic pain medication as instructed for severe pain. 3. Avoid getting constipated ?? Drink lots of water and fluids (over 2 liters per day). ?? Each morning please take a daily fiber supplement (such as Citrucel or BeneFiber), one heaping tablespoon in 8 oz. of water. (MiraLax may be recommended instead of fiber) ?? While taking narcotic pain medications please also take a stool softener (Colace 100 mg two to three times per day). ?? If you do not have a bowel movement in 48 hours then take 60 cc of Milk of Magnesia every 12 hours until you have a bowel movement. If you do not have a bowel movement after 2 doses of Milk of Magnesia please call (see below). 4. When to call ?? Fever > 101.5 F, worsening pain, active bleeding, passing blood clots ?? difficulty/inability to pass urine (urinary retention) or stool (constipation) ?? any other worrisome condition or question ?? during regular work hours call the Surgery Clinic at ?? after hours / nights / weekends / holidays: call and ask for the General Surgery Resident doctor On-Call. 4. Follow-up. You will have a post-operative follow-up appointment with your Surgical Team scheduled, usually in 2 - 6 weeks with Ms. Lozoya, Colorectal MAX Rider, anorectal surgery sub-specialist, with your surgeon supervising. If you have any questions, please call . Future Appointments Date Time Provider Department Center 05/10/2018 11:00 AM Lizzie Lozoya APRN [facility] Divison of Colon and Rectal Surgery, [facility] [address] ??? [place] [address] ??? documented in this encounter Medications at Time of Discharge Medication Sig Dispensed Refills Start Date End Date acetaminophen (TYLENOL) 500 mg Tablet Take 2 tablets by mouth every 6 hours. 30 tablet 1 04/14/2018 hydroCHLOROthiazide (HYDRODIURIL) 25 mg Tablet take 1 tablet by mouth once daily 0 03/16/2018 IBU 800 mg Tablet 0 02/24/2018 HYDROcodone-acetaminophe n (NORCO) 10-325 mg Tablet take 1 tablet by mouth twice a day if needed for pain maximum daily dose of 2 tablets 0 04/06/2018 multivitamin (THERAGRAN) Tablet Take 1 tablet by mouth daily. pregabalin (LYRICA) 100 mg capsule 06/29/2007 documented as of this encounter Progress Notes * Libra Duran RN - 04/14/2018 7:09 PM EST Patient alert and oriented, vital signs stable. Reviewed discharge instructions; patient and _wife verbalized understanding. Copy of instruction sheet with contact numbers for questions/concerns. Pain assessment documented. Patient escorted out of department via wheelchair with __wife . documented in this encounter H&P Notes * Scott Rosenberg - 04/14/2018 2:48 PM EST Colorectal Surgery Preop H&P NAME: Rubens Florian DATE: 04/14/18 SURGEON: LIDIA BRUNO PROCEDURE: Anorectal exam under anesthesia, possible abscess incision and drainage, possible cyst excision, possible Seton placement, possible fistulotomy BRIEF HISTORY: Rubens Florian is a 52 y.o. male with intermittent perianal drainage and swelling concerning for fistula in ano vs perianal abscess. He presents today for anorectal exam under anesthesia with possible fistulotomy, possible Seton placement, possible cyst excision, possible incision and drainage. Please see Lizzie Lozoya's clinic note from 04/12 for full details. The patient reports no interval change. There has been no interval medical illness or hospitalizations. Questions have been addressed. Last colonoscopy in 2015, screening. Two hyperplastic polyps found in the sigmoid colon. Otherwise normal. Smoking HX: Social History Tobacco Use Smoking Status Current Every Day Smoker Smokeless Tobacco Never Used PMH: Patient Active Problem List Diagnosis Date Noted ??? Hypertension 04/12/2018 ??? 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 Sleep apnea 04/12/2018 PSH: Past Surgical History: Procedure Laterality Date ??? ABSCESS DRAINAGE PERINEUM Drainage of perineal cyst in or 1999 ??? ANKLE SURGERY Had plate screws, which where subsequently removed. ??? KNEE SURGERY MEDS: No current facility-administered medications on file prior to encounter. Current Outpatient Medications on File Prior to Encounter Medication Sig Dispense Refill ??? hydroCHLOROthiazide (HYDRODIURIL) 25 mg Tablet take 1 tablet by mouth once daily 0 ??? multivitamin (THERAGRAN) Tablet Take 1 tablet by mouth daily. ??? IBU 800 mg Tablet 0 ??? HYDROcodone-acetaminophen (NORCO) 10-325 mg Tablet take 1 tablet by mouth twice a day if neededfor pain maximum daily dose of 2 tablets 0 ??? pregabalin (LYRICA) 100 mg capsule (Patient not taking: No sig reported) ALL: No Known Allergies Physical Exam Most Recent Vitals: 04/14/18 1450 BP: 159/88 Pulse: Resp: Temp: SpO2: Gen: NAD, pleasant, sitting comfortably in bed HEENT: normocephalic, atraumatic, EOMI, sclerae anicteric Neck: supple, trachea midline Card: RRR, no M/R/G appreciated Pulm: CTAB, no wheeze/ronchi/rales appreciated, non-labored breathing on room air Abd: soft, NT, BS+ Ext: warm, dry, no edema Neuro: A&Ox3, CN II-XII grossly intact, nonfocal, conversant LABS: No results found for: NA, K, CL, CO2, BUN, CREATININE Assessment/Plan: Rubens Florian is a 52 y.o. male presenting today for planned anorectal exam under anesthesia, with possible abscess incision and drainage, possible cyst excision, possible fistulotomy, and possible Seton placement. Consent signed and confirmed in chart. Questions addressed. Willproceed with planned surgery. Scott Rosenberg MD 04/14/2018 Colorectal Surgery Service Pager [phone] documented in this encounter Miscellaneous Notes * Op Note - Lidia Bruno MD - 04/14/2018 5:42 PM EST [facility] [place] Patient Name: Rubens Florian : [id number] MR#: [id number] Case Date: 04/14/2018 Surgeon: Surgeon(s) and Role: * Lidia Bruno MD - Primary * Scott Rosenberg MD - Resident-Surgeon Baltazar Preoperative diagnosis: ANAL FISTULA Postoperative diagnosis: ANAL FISTULA Procedure(s) (LRB): ANORECTAL EXAM, REQUIRING ANESTHESIA, DIAGNOSTIC (WRVU 1.8) (N/A) INCISION & DRAINAGE, PERIANAL ABSCESS, SUPERFICIAL (WRVU 1.24) (N/A) Anesthesia: General Estimated Blood Loss: * No values recorded between 04/14/2018 4:58 PM and 04/14/2018 5:15 PM * Specimens removed during surgery: None Drains: Surgical Closure: NA Disposition: awakened from anesthesia, extubated and taken to the recovery room in a stable condition, having suffered no apparent untoward event. Condition: doing well without problems (Please see the Surgical Encounter Summary for any Implant and Specimen details pertinent to this patient.) HPI/Surgical Indications: Rubens is a 52-year-old man with a 4-month history of intermittent swelling and drainage from the right anterior perianal skin. He will have periods of time with no drainage and then recurrent swelling with drainage. He was seen in the office on Wednesday where a tiny skin opening was noted. Purulent fluid was noted to be draining from the space. A cavity versus tracking towards the anus could be palpated. This is suspicious for a perianal fistula versus possible chronic abscess cavity. I recommended an examination under anesthesia, incision and drainage of abscess, fistulotomy, and possible seton placement with the need for further procedures if a high transsphincteric fistula was identified. We discussed the risks and benefits of the procedure and all of Rubens's questions were answered and he wished to proceed with surgery. Procedure Description: Rubens was brought to the operating room. General anesthesia was induced on the gurney. He was then positioned in the prone jackknife position on the operating room table with the chest and hips padded and the genitalia not under pressure. The arms were out on arm boards. The b uttocks were taped apart. The perineum was prepped with Betadine and sterilely draped. A surgical timeout was called confirming the patient and procedures to be performed. No antibiotics were indicated. He had SCDs for DVT prophylaxis. We began the procedure with an external examination. In the right anterior there is an area of scar. There is an approximately 2 cm area of induration and with pressure a small amount of purulent fluid could be expressed. There are no other areas of scar, erythema, induration, or active drainage. On digital rectal exam the distal rectum and anal canal feel normal with no areas of induration or muc osal irregularity. Anoscopy was then performed with a large Hill-Baldwin retractor. The distal rectal mucosa and anal canal appeared normal. I could not identify an internal opening. We used a small lacrimal duct probe to interrogate the right anterior skin opening. This tracked towards the anal canal. The chronic abscess cavity was unroofed by opening the skin overlying the cavity with electrocautery. A larger fistula probe was used. This also tracked anteriorly toward the anal canal. Due to concern for a fistula, but no apparent internal opening, I placed a 14 [place]in Angiocath within the skin opening and tract and injected 20 cc of a one-to-one mixture of hydrogen peroxide and sterile saline. There was no bubbling or fluid passage into the anal canal. No fistula was identified, only the chronic abscess cavity with an associated tract but no internal opening. The Angiocath was removed. The chronic abscess cavity was further unroofed by excising more skin. The external cavity and tract were curetted. We irrigated with sterile saline. Hemostasis was insured. 20 cc of Exparel were injected around the incision. The buttock tapes were removed. Gauze and meshunderwear were placed as a dressing. The patient was returned to the supine position on the gurney.He was awoken from general anesthesia and extubated in the operating room without difficulty. All counts were correct at the end the case. Infection Bundle used? N/A Attestation: Case Date: 04/14/2018 I was present and I participated during the entire procedure (does not need to include opening and closing). Lidia Bruno MD 04/14/2018 * Brief Op Note - Scott Rosenberg - 04/14/2018 5:36 PM EST Brief Operative Note Patient Name: Rubens Florian : [id number] MR#: [id number] Case Date: 04/14/2018 Surgeon: Surgeon(s) and Role: * Lidia Bruno MD - Primary * Scott Rosenberg MD - Resident-Surgeon Baltazar Preoperative diagnosis: Perianal abscess Postoperative diagnosis: Perianal abscess Procedure(s): ANORECTAL EXAM, REQUIRING ANESTHESIA, DIAGNOSTIC (WRVU 1.8) INCISION & DRAINAGE, PERIANAL ABSCESS, SUPERFICIAL (WRVU 1.24) Anesthesia: General Findings: Punctate skin opening in right anterior perianal area draining small amount of purulent fluid, pocket tracking toward anus, probed and injected with 50% hydrogen peroxide, no interior opening found. Pocket opened using electrocautery. 2 cm incision left open, dressed with kerlix gauze andmesh underwear. Complications: None Estimated Blood Loss: * No values recorded between 04/14/2018 4:58 PM and 04/14/2018 5:15 PM * Specimens removed during surgery: * No orders in the log * Fluids: Intraprocedure Crystalloid Total None Fluids: ANES IntraOp Crystalloid (Filter: (AN Fluids) Medications Shown) Medication Calculated Total No medications were administered. Blood: none Urine Output: (no urine output recorded) Drains: None Disposition: awakened from anesthesia, extubated and taken to the recovery room in a stable condition, having suffered no apparent untoward event. Condition: doing well without problems (Please see the Surgical Encounter Summary for any Implant and Specimen details pertinent to this patient.) Infection Bundle used? N/A ANES IntraOp Crystalloid (Filter: (AN Fluids) Medications Shown) Medication Calculated Total No medications were administered. documented in this encounter Plan of Treatment Not on file documented as of this encounter Procedures Procedure Name Priority Date/Time Associated Diagnosis Comments INCISION & DRAINAGE, PERIANAL ABSCESS, SUPERFICIAL (WRVU 1.24) Yes 04/14/2018 4:29 PM EST ANAL FISTULA ANORECTAL EXAM, REQUIRING ANESTHESIA, DIAGNOSTIC (WRVU 1.8) Yes 04/14/2018 4:29 PM EST ANAL FISTULA documented in this encounter Visit Diagnoses Not on filedocumented in this encounter Administered Medications Inactive Administered Medications - up to 3 most recent administrations Medication Order MAR Action Action Date Dose Rate Site acetaminophen (TYLENOL) 500 mg tablet 1 dose, Starting on Denise 04/14/18 at 1741, Until Denise 04/14/18 at 1745, ANAI HOPPER: cabinet override acetaminophen (TYLENOL) tablet 1,000 mg 1,000 mg, Oral, ONCE, 1 dose, On Denise 04/14/18 at 1600, Administer with SIP of H2O only., Day of Surgery (Day of Procedure), Routine Given 04/14/2018 4:00 PM EST 1,000 mg acetaminophen (TYLENOL) tablet 1,000 mg 1,000 mg, Oral, EVERY 6 HOURS SCHEDULED, First dose on Denise 04/14/18 at 1800, Until Discontinued, Maximum dose of acetaminophen is 4000 mg from all sources in 24 hours., Routine Given 04/14/2018 5:45 PM EST 1,000 mg albuterol (PROVENTIL) nebulizer solution 2.5 mg 2.5 mg, Nebulization, ONCE, 1 dose, On Denise 04/14/18 at 1600, Day of Surgery (Day of Procedure), Routine Given 04/14/2018 4:00 PM EST 2.5 mg BUpivacaine liposome (PF) (EXPAREL) 1.3 % (13.3 mg/mL) injection for infiltration ONCE PRN, Starting on Denise 04/14/18 at 1712, Until Denise 04/14/18 at 2111, Intra-Operative (Intra-Procedure) Given 04/14/2018 5:12 PM EST 20 mLs 19- Surgical Site ibuprofen (ADVIL;MOTRIN) tablet 600 mg 600 mg, Oral, EVERY 6 HOURS PRN, Starting on Denise 04/14/18 at 1739, Until Denise 04/14/18 at 2111, Pain, Administer orally with milk or food to minimize GI irritation. Maximum dose of 3200 mg from all sources in 24 hours, Routine Given 04/14/2018 6:14 PM EST 600 mg lactated Ringers infusion 1,000 mL 1,000 mL, at 100 mL/hr, Intravenous, CONTINUOUS, Starting on Denise 04/14/18 at 1600, Until Denise 04/14/18 at 1910, Day of Surgery (Day of Procedure) New Bag 04/14/2018 4:00 PM EST 1,000 mLs 100 mL/hr lidocaine (XYLOCAINE) 10 mg/mL (1 %) injection 3 mg 3 mg (0.3 mL), Subcutaneous, ONCE PRN, 1 dose, Starting on Denise 04/14/18 at 1536, Until Denise 04/14/18 at 1600, for discomfort with PIV insertion, Day of Surgery (Day of Procedure), Routine Given 04/14/2018 4:00 PM EST 3 mg oxyCODONE (ROXICODONE) immediate release tablet 5 mg 5 mg, Oral, ONCE PRN, 1 dose, Starting on Denise 04/14/18 at 1740, Until Denise 04/14/18 at 1815, Pain, Routine Given 04/14/2018 6:15 PM EST 5 mg documented in this encounter Active and Recently Administered Medications Times are shown in EST. Scheduled Medication Order 04/12/2018 04/13/2018 04/14/2018 acetaminophen (TYLENOL) tablet 1,000 mg (COMPLETED) 1,000 mg, Oral, ONCE, 1 dose, On Denise 04/14/18 at 1600, Administer with SIP of H2O only., Day of Surgery (Day of Procedure), Routine 1600 (Given - Provid er: Yamila Branham RN) acetaminophen (TYLENOL) tablet 1,000 mg 1,000 mg, Oral, EVERY 6 HOURS SCHEDULED, First dose on Denise 04/14/18 at 1800, Until Discontinued, Maximum dose of acetaminophen is 4000 mg from all sources in 24 hours., Routine 1745 (Given - Provid er: Anai Hopper RN) albuterol (PROVENTIL) nebulizer solution 2.5 mg (COMPLETED) 2.5 mg, Nebulization, ONCE, 1 dose, On Denise 04/14/18 at 1600, Day of Surgery (Day of Procedure), Routine 1600 (Given - Provid er: Yamila Branham RN) sodium phosphates (FLEET) 19-7 gram/118 mL rectal enema 1 Bottle 1 Bottle, Rectal, EVERY 15 MIN, 2 doses, First dose on Denise 04/14/18 at 1800, Last dose on Denise 04/14/18 at 1815, Patient to self-administer Fleet enema on commode. If patient administered at home disregard., Day of Surgery (Day of Procedure), Routine 1800 (Due)1815 (Due) Continuous Medication Order 04/12/2018 04/13/2018 04/14/2018 lactated Ringers infusion 1,000 mL (CANCELED) 1,000 mL, at 100 mL/hr, Intravenous, CONTINUOUS, Starting on Denise 04/14/18 at 1600, Until Denise 04/14/18 at 1910, Day of Surgery (Day of Procedure) 1600 (New Bag - Prov ider: Yamila Branham RN)1627 (Anesthesia Volume Adjustment - Provider: Jennifer Maza CRNA)1738 (Anesthesia Volume Adjustment - Provider: Haven Conley CRNA) PRN Medication Order 04/12/2018 04/13/2018 04/14/2018 BUpivacaine liposome (PF) (EXPAREL) 1.3 % (13.3 mg/mL) injection for infiltration (CANCELED) ONCE PRN, Starting on Denise 04/14/18 at 1712, Until Denise 04/14/18 at 2111, Intra-Operative (Intra-Procedure) 171 (Given - Provid er: Lidia Bruno MD) ibuprofen (ADVIL;MOTRIN) tablet 600 mg 600 mg, Oral, EVERY 6 HOURS PRN, Starting on Denise 04/14/18 at 1739, Until Denise 04/14/18 at 2111, Pain, Administer orally with milk or food to minimize GI irritation. Maximum dose of 3200 mg from all sources in 24 hours, Routine 1813 (Given - Provid er: Libra Duran RN) lidocaine (XYLOCAINE) 10 mg/mL (1 %) injection 3 mg (COMPLETED) 3 mg (0.3 mL), Subcutaneous, ONCE PRN, 1 dose, Starting on Denise 04/14/18 at 1536, Until Denise 04/14/18 at 1600, for discomfort with PIV insertion, Day of Surgery (Day of Procedure), Routine 1600 (Given - Provid er: Yamila Branham RN) oxyCODONE (ROXICODONE) immediate release tablet 5 mg (COMPLETED) 5 mg, Oral, ONCE PRN, 1 dose, Starting on Denise 04/14/18 at 1740, Until Denise 04/14/18 at 1815, Pain, Routine 1814 (Given - Provid er: Libra Duran RN) documented in this encounter Care Teams Oil Separator Relationship Specialty Start Date End Date Robert Arellano DO [address] [place] [address] PCP - General Family Medicine 04/05/18 documented as of this encounter
--- OUTSIDE RECORDS SUMMARY | 2023-11-09 17:18 | XMS_ITS | Encounter Summary ---
Author Organization [facility] [place] [address] Care Team Providers Care Programming Equipment Operator Name Role Phone Shaun Maza MD Primary Care Provider [phone] Encounter Details Date Type Department Care Team (Latest Contact Info) Description 03/13/2010 2:14 PM EST - 03/13/2010 11:59 PM EST Hospital Encounter [place] [id number] CLINIC, Jordan Garcia MD [address] [place], [place] [address] Discharge Disposition: Home Social History Tobacco Use Types Packs/Day Years Used Date Smoking Tobacco: Never Assessed Sex and Gender Information Value Date Recorded Sex Assigned at Not on file Gender Identity Not on file Sexual Orientation Not on file documented as of this encounter Medications at Time of Discharge Medication Sig Dispensed Refills Start Date End Date pregabalin (LYRICA) 100 mg capsule 2007 documented as of this encounter Plan of Treatment Not on file documented as of this encounter Visit Diagnoses Not on filedocumented in this encounter Care Teams Programming Equipment Operator Relationship Specialty Start Date End Date Shaun Maza MD [address] [place] [address] PCP - General 02/11/10 04/04/18 documented as of this encounter
--- OUTSIDE RECORDS SUMMARY | 2023-11-09 17:18 | XMS_ITS | Clinical Summary ---
Author Organization [facility] Address [facility] [place] [address] Care Team Providers Care Waste Machine Tender Name Role Phone Adan Robert QUINTANILLA Primary Care Provider [phone] Allergies No known active allergies Medications Medication Sig Dispensed Refills Start Date End Date Status pregabalin (LYRICA) 100 mg capsule 06/29/2007 Active hydroCHLOROthiazide (HYDRODIURIL) 25 mg Tablet take 1 tablet by mouth once daily 0 03/16/2018 Active IBU 800 mg Tablet 0 02/24/2018 Active HYDROcodone-acetamino phen (NORCO) 10-325 mg Tablet take 1 tablet by mouth twice a day if needed for pain maximum daily dose of 2 tablets 0 04/06/2018 Active multivitamin (THERAGRAN) Tablet Take 1 tablet by mouth daily. Active acetaminophen (TYLENOL) 500 mg Tablet Take 2 tablets by mouth every 6 hours. 30 tablet 1 04/14/2018 Active Active Problems Problem Noted Date Diagnosed Date Hypertension 04/12/2018 Chronic pain of right wrist 04/12/2018 Sleep apnea 04/12/2018 Family History Medical History Relation Comments No Known Problems Brother Other Maternal Grandfather malignant n eoplasm (unknown) Heart Disease Maternal Grandmother No Known Problems Mother Other Paternal Grandmother neoplasm No Known Problems Sister Relation Status Comments Brother Maternal Grandfather Maternal Grandmother Mother Paternal Grandmother Sister Social History Tobacco Use Types Packs/Day Years Used Date Smoking Tobacco: Every Day Smokeless Tobacco: Never Sex and Gender Information Value Date Recorded Sex Assigned at Not on file Gender Identity Not on file Sexual Orientation Not on file Last Filed Vital Signs Vital Sign Reading Time Taken Comments Blood Pressure 117/35 04/14/2018 6:30 PM EST Pulse 73 04/14/2018 2:49 PM EST Temperature 36.2 ??C (97.2 ??F) 04/14/2018 5:35 PM ES T Respiratory Rate 18 04/14/2018 6:30 PM EST Oxygen Saturation 97% 04/14/2018 6:30 PM EST Inhaled Oxygen Concentration - - Weight 140.6 kg (310 lb) 04/14/2018 2:49 PM EST Height 177.8 cm (5' 10) 04/14/2018 2:49 PM EST Body Mass Index 44.48 04/14/2018 2:49 PM EST Plan of Treatment Health Maintenance Due Date Last Done Comments CT Colonography 1965 Colonoscopy 1965 Colorectal Cancer Screening 1965 FIT DNA 1965 FIT 1965 Sigmoidoscopy (10 year) with FIT yearly 1965 Sigmoidoscopy 1965 HIV screen 1982 Hepatitis C Screening 1982 Lipid Screening 1982 Hepatitis B vaccine (0-59 yrs) (1) 10/12/1983 Tdap adult 10/12/1983 Tetanus vaccine 10/12/1983 Zoster vaccine (1 of 2) 2014 Advance Directive 10/12/2019 Covid-19 Vaccine (1 - 2022- season) 2022 Influenza (Flu) vaccine (1 o f 1 - Influenza standard series) 11/21/2023 Advance Directives * Full Code (Latest Code Status on File) Date Activated Date Inactivated Comments 04/14/2018 3:05 PM 04/14/2018 9:11 PM Question Answer Comments Does patient have capacity to make decision: Yes Care Teams Waste Machine Tender Relationship Specialty Start Date End Date Robert Arellano DO [address] [place] [address] PCP - General Family Medicine 04/05/18
--- OUTSIDE RECORDS SUMMARY | 2023-11-09 17:18 | XMS_ITS | Clinical Summary ---
Author Organization [facility] Address [address] [place] [address] Care Team Providers Care Rail Transportation Tabeler Name Role Phone Unknown, Provider Primary Care Provider [phone] Social History Tobacco Use Types Packs/Day Years Used Date Smoking Tobacco: Never Assessed Sex and Gender Information Value Date Recorded Sex Assigned at Not on file Gender Identity Not on file Sexual Orientation Not on file Plan of Treatment Health Maintenance Due Date Last Done Comments Hepatitis C Screen 1965 Hepatitis B Vaccine (1 of 3 - 19+ 3-dose series) 10/11 COVID-19 Vaccine (2022-24 season) 2022 Care Teams Rail Transportation Tabeler Relationship Specialty Start Date End Date Unknown, Provider, PCP - General 04/23/15
--- OUTSIDE RECORDS SUMMARY | 2023-11-09 17:18 | XMS_ITS | Referral Summary ---
Author Organization [facility] Address [address] [place] [address] Care Team Providers Care Doctor Of Nursing Practice Name Role Phone Unknown, Provider Primary Care Provider [phone] Social History Tobacco Use Types Packs/Day Years Used Date Smoking Tobacco: Never Assessed Sex and Gender Information Value Date Recorded Sex Assigned at Not on file Gender Identity Not on file Sexual Orientation Not on file Plan of Treatment Not on file Care Teams Doctor Of Nursing Practice Relationship Specialty Start Date End Date Unknown, Provider, PCP - General 04/23/15
--- OUTSIDE RECORDS SUMMARY | 2023-11-09 17:18 | XMS_ITS | Encounter Summary ---
Author Organization [facility] Address [address] [place] [address] Care Team Providers Care [employer] Volley[employer] Coach Name Role Phone Unavailable Primary Care Provider Unavailabl e Encounter Details Date Type Department Care Team (Late st Contact Info) Description 04/19/2015 Results Only [facility] [phone] Stefani Hernandez, DO [address] [place] [phone] Social History Tobacco Use Types Packs/Day Years Used Date Smoking Tobacco: Never Assessed Sex and Gender Information Value Date Recorded Sex Assigned at Not on file Gender Identity Not on file Sexual Orientation Not on file documented as of this encounter Plan of Treatment Not on file documented as of this encounter Procedures Procedure Name Priority Date/Time Associated Diagnosis Comments SURGICAL PATHOLOGY Routine 04/19/2015 8:47 EST documented in this encounter Results * SURGICAL PATHOLOGY (04/19/2015 8:47 EST) Pathology Report: SURGICAL PATHOLOGY REPORT Reports generated via electronic interface contain original data; however they are lacking the format of the original report. Caution should be taken when reading/interpret ing unformatted reports. Name: ? RICHARD EMETERIO G ? Accession #: ? [id number] ? : ? 1965 (Age: 49) ??M ? Collect Date: ? 04/19/2015 ? Location: ? [facility] ? Receive Date: ? 04/22/2015 ? Provider: STEFANI HERNANDEZ DO Copy to: LEONARD BAPTISTE MD ? Final Pathologic Diagnosis: A. COLON, SIGMOID, 35 CM, POLYPS, BIOPSIES: - ??Fragments of hyperplastic polyp(s). B. COLON, SIGMOID, 30 CM, POLYP, BIOPSY: - ??Hyperplastic polyp. Document reviewed and electronically signed by: PARVEEN MANNING MD Report ??Date: 04/23/2015 14:44 By the signature above, the attending physician certifies that he/she has personally conducted a gross and/or microscopic examination of the described specimens and rendered or confirmed the above diagnosis. Specimen(s) Received: A. ??Sigmoid colon polyps 35 cm x3 B. ??Sigmoid polyp 30 cm Clinical History: Screening colonoscopy Gross Description: A. ?Received in formalin labelled with proper patient identification (initials H, K) and sigmoid colon polyps 35 cm x3 are three fragments of vogt-pink tissue (0.2 x 0.2 x 0.2 cm to 0.4 x 0.2 x 0.2 cm). The specimens are submitted entirely in A1. B. ?Received in formalin labelled with proper patient identification (initials H, K) and sigmoid polyp 30 cm are two fragments of vogt-pink tissue (0.2 x 0.2 x 0.2 cm and 0.3 x 0.2 x 0.2 cm). The specimens are submitted entirely in B1. 04/22/2015 1:02 PM End of Report [facility] 04/19/2015 8:47 EST 04/22/2015 8:47 EST Stefani Hernandez DO PATHOLOGY ORDERABLES [facility] [address] [place] [address] documented in this encounter Visit Diagnoses Not on filedocumented in this encounter
--- OUTSIDE RECORDS SUMMARY | 2023-11-09 17:18 | XMS_ITS | Encounter Summary ---
Author Organization [facility] Address [facility] [place] [address] Care Team Providers Care Product Examiner Name Role Phone AdanRobert le Primary Care Provider [phone] Reason for Visit * Auth/Cert Specialty Diagnoses [...] Expiration Date Visits Re quested Visits Authorized [id number] 1 1 Encounter Details Date Type Department Care Team (Latest Contact Info) Description 04/14/2018 2:27 PM EST - 04/14/2018 7:11 PM EST Hospital Encounter [place] [address] Lidia Rendon MD [facility] [place] [address] Discharge Disposition: Home Social History Tobacco Use [...] buttocks. 2. Pain medications ?? Please take [id number] pain medications for post-operative discomfort. ?? Acetaminophen [...] usually in 2 - 6 weeks with Krissy Mckenna, anorectal surgery sub-specialist, with your surgeon supervising. If you have any questions, please call . Future Appointments Date Time Provider Department Center 05/10/2018 11:00 AM Lizzie Lozoya APRN [facility] Divison of Colon and Rectal Surgery, [facility] [address] ??? [place] [address] ??? documented in this encounter Medications at [...] this encounter H&P Notes * Scott Rosenberg Liliana - 04/14/2018 2:48 PM EST Colorectal Surgery Preop H&P NAME: Rubens Florian DATE: 04/14/18 SURGEON: LIDIA RENDON PROCEDURE: Anorectal exam under anesthesia, possible abscess [...] Rosenberg MD 04/14/2018 Colorectal Surgery Service Pager [phone] documented in this encounter Miscellaneous Notes * Op Note - Lidia Rendon MD - 04/14/2018 5:42 PM EST [facility] Operative Note Patient Name: Rubens Florian : [id number] MR#: [id number] Case Date: 04/14/2018 Surgeon: Surgeon(s) and Role: * Lidia Rendon MD - Primary * Scott Rosenberg MD [...] apparent internal opening, I placed a 14 Italian Angiocath within the skin opening and tract [...] need to include opening and closing). Lidia Rendon MD 04/14/2018 * Brief Op Note - Scott Rosenberg - 04/14/2018 5:36 PM EST Brief Operative Note Patient Name: Rubens Florian : [id number] MR#: [id number] Case Date: 04/14/2018 Surgeon: Surgeon(s) and Role: * Lidia Rendon MD - Primary * Scott Rosenberg MD [...] Given 04/14/2018 4:00 PM EST 2.5 mg ibuprofen (ADVIL;MOTRIN) tablet 600 mg 600 mg, [...] 04/14/18 at 1712, Until Denise 04/14/18 at 2110, Intra-Operative (Intra-Procedure) 171 (Given - Provid er: Lidia Rendon MD) ibuprofen (ADVIL;MOTRIN) tablet 600 mg 600 mg, Oral, EVERY 6 HOURS PRN, Starting on Denise 04/14/18 at 1739, Until Denise 04/14/18 at 211, Pain, Administer orally with milk or food to minimize GI irritation. Maximum dose of 3200 mg from all sources in 24 hours, Routine 1814 (Given - Provid er: Libra [...] Until Denise 04/14/18 at 1815, Pain, Routine 181 (Given - Provid er: Libra Duran RN) documented in this encounter Care Teams Product Examiner Relationship Specialty Start Date End Date Robert Arellano DO [address] [place] [address] [address] PCP - General Family Medicine 04/05/18 documented as of this encounter
== END 2023-11-09 17:16 | disposition home or self-care (01) ==
LOC: LBN 17:15
PROVIDERS: PCP Nurse Practitioner Family; Visit Provider Nurse Practitioner Family
DX: E11.9 Type 2 diabetes mellitus without complications (principal)
CPT/HCPCS: 83036

== ENCOUNTER 2025-02-27 20:35 | Outpatient (REF) | payer BC, SELFPAY | END 2025-02-27 20:36 | disposition home or self-care (01) | LOC: LBN 20:35 | PROVIDERS: PCP Nurse Practitioner Family; Visit Provider Nurse Practitioner Family | DX: F11.90 Opioid use, unspecified, uncomplicated (principal) | CPT/HCPCS: 80361; 80362; 80365 ==